=== PATIENT | female | born 1950 | race American Indian/Alaskan Native ===

== ENCOUNTER 2018-08-22 07:07 | Day surgery (SDC) | payer MEDICARE ==
[~2018-08-22 07:07] MED LIST: NACL 0.9% 1000 ML 1,000 ML IV SCH
--- NOTE | 2018-08-22 07:46 | Anesthesia Consultation ---
Anesthesia Consult and Med Hx Date of service: 08/22/18 - Airway Anesthetic Teeth Evaluation: Good ROM Head & Neck: Adequate Mental/Hyoid Distance: Adequate Mallampati Class: Class II Intubation Access Assessment: Probably Good - Pulmonary Exam CTA: Yes - Cardiac Exam Cardiac Exam: RRR - Pre-Operative Health Status ASA Pre-Surgery Classification: ASA3 Proposed Anesthetic Plan: MAC - Cardiovascular System Hx Hypertension: Yes - Other Systems Hx Obesity: Yes
--- NOTE | 2018-08-22 07:46 | Anesthesia Day of Surgery ---
Anesthesia Day of Surgery - Day of Surgery Patient Examined: Yes Patient H&P Reviewed: Yes Patient is NPO: Yes
[2018-08-22] MEDS ORDERED: WATER FOR IRRIG STERILE IR ONE (08:39)
--- NOTE | 2018-08-22 09:36 | Short Stay Summary ---
Short Stay Documentation - Allergies and Medications Current Medications: Allergies aspirin Allergy (Mild, Verified 08/21/18 11:50) Unknown Home Medications Medication Instructions Recorded Confirmed Last Taken Type Fish Oil 1 tab PO DAILY 08/21/18 08/22/18 08/21/18 History Losartan 100 mg PO DAILY 08/21/18 08/21/18 08/21/18 History amLODIPine 10 mg PO DAILY 08/21/18 08/21/18 08/21/18 History Crestor 10 mg PO DAILY 08/22/18 08/22/18 08/21/18 History Active Medications Sodium Chloride (Nacl 0.9% 1000 Ml) 1,000 mls @ 50 mls/hr IV DIRECT RYANN Last Admin: 08/22/18 08:11 Dose: 50 mls/hr Documented by: - Brief post op/procedure progress note Date of procedure: 08/22/18 Pre-op diagnosis: 1. Colon cancer screening 2. Constipation Post-op diagnosis: same (1. Internal hemorrhoids 2. Diverticulosis) Procedure: Colonoscopy Anesthesia: MAC Findings: as above Surgeon: LATASHA MILES Estimated blood loss: none Pathology: none Condition: stable - Disposition Condition at discharge: Stable Disposition: DC-01 TO HOME OR SELFCARE Short Stay Discharge Plan Activity: no restrictions Weight Bearing Status: Full Weight Bearing Diet: regular, low salt Follow up with: RANDALL QUEEN MD [Primary Care Provider] - 7 Days
--- NOTE | 2018-08-22 09:47 | Post Anesthesia Evaluation ---
- Post Anesthesia Evaluation Patient Participated: Yes Airway Patent: Yes Stable Respiratory Function: Yes Nausea/Vomiting: No Temp > 96.8F: Yes Pain Manageable: Yes Adequeate Hydration: Yes Anesthesia Complications: No Block Receding Appropriately: Not Applicable Patient on Ventilator: No
[2018-08-22 09:55] VITALS: BP 176/81
[2018-08-22] MEDS ORDERED: DIPRIVAN 10 MG/ML IV ONE ×2 (13:38)
== END 2018-08-22 07:08 | disposition home or self-care (01) ==
LOC: GIO 07:07
PROVIDERS: ATTEND Internal Medicine Gastroenterology
DX: K64.0 First degree hemorrhoids (principal); K57.30 Diverticulosis of large intestine without perforation or abscess without bleeding; K92.1 Melena; K59.09 Other constipation; E78.00 Pure hypercholesterolemia, unspecified; I10 Essential (primary) hypertension; E66.9 Obesity, unspecified; M19.90 Unspecified osteoarthritis, unspecified site; Z98.890 Other specified postprocedural states; Z79.899 Other long term (current) drug therapy; Z88.6 Allergy status to analgesic agent
CPT/HCPCS: 45378; J2704; J7030